=== PATIENT | female | born 1985 | race Hispanic/Latino ===

== ENCOUNTER 2019-09-11 12:13 | Emergency (ER) | payer MEDICAID ==
[2019-09-11 14:35] LABS: APPEARANCE,URINE Cloudy (CLEAR); BILIRUBIN,URINE Negative (NEGATIVE); COLOR,URINE Yellow (YELLOW); GLUCOSE, URINE (UA) Negative (NEGATIVE); KETONES,URINE Negative (NEGATIVE); LEUKOCYTE ESTERASE ,URINE Large (NEGATIVE); NITRATE,URINE Negative (NEGATIVE); OCCULT BLOOD,URINE Large (NEGATIVE); PROTEIN,URINE Negative (NEGATIVE)
[2019-09-11 14:46] LABS: BASOPHILS % (AUTO) 0.3 % (0.0-5.0); EOSINOPHILS % (AUTO) 2.9 % (0.0-8.0); HEMATOCRIT 37.5 % (36-48); LYMPHOCYTES % (AUTO) 21.8 % (21.0-51.0); MEAN CORPUSCULAR HEMOGLOBIN 29.1 pg (27.0-33.0); MEAN CORPUSCULAR HGB CONC 33.3 g/dL (32.0-36.0); MEAN CORPUSCULAR VOLUME 87.2 fL (79-99); MONOCYTES % (AUTO) 5.6 % (3.0-13.0); NEUTROPHILS % (AUTO) 69.2 % (40.0-77.0); PLATELET COUNT (AUTO) 189 K/uL (130-400); RED CELL DISTRIBUTION WIDTH 13.6 % (11.0-15.5); WHITE BLOOD COUNT (AUTO) 6.2 K/uL (4.8-10.8)
[2019-09-11 14:52] LABS: SQUAMOUS EPITHELIAL CELL,UR Moderate /HPF (0-2)
[2019-09-11 14:53] LABS: BACTERIA,URINE Moderate /HPF (None Seen)
[2019-09-11 15:03] LABS: CREATININE 0.5 mg/dL (0.5-1.5); POTASSIUM 4.2 mmol/L (3.5-5.1)
[2019-09-11 15:29] LABS: ALBUMIN 3.5 g/dL (3.5-5.0); BILIRUBIN,TOTAL 0.4 mg/dL (0.2-1.0); TOTAL PROTEIN, SERUM 7.4 g/dL (6.0-8.3)
[2019-09-11] MEDS ORDERED: CEFTRIAXONE SODIUM 1 GM ONE (17:11)
== END 2019-09-11 19:39 | disposition home or self-care (01) ==
LOC: EDH 12:13
DX: O20.0 Threatened abortion (principal); O23.41 Unspecified infection of urinary tract in pregnancy, first trimester; O99.511 Diseases of the respiratory system complicating pregnancy, first trimester; J45.909 Unspecified asthma, uncomplicated; Z79.899 Other long term (current) drug therapy; Z3A.12 12 weeks gestation of pregnancy
CPT/HCPCS: 36415; 76801; 80053; 81001; 83033; 84702; 85025; 86900; 86901; 87088; 96372; 96374; 99284; J0696; J2791

== ENCOUNTER 2020-03-14 00:39 | Inpatient (IN) | payer MEDICAID ==
[~2020-03-14] VITALS: Ht 170.2 cm; Wt 128.8 kg
[2020-03-14] MEDS ORDERED: FERR-82 PO (01:03)
[2020-03-14 01:27] LABS: BILIRUBIN,URINE Negative (NEGATIVE); COLOR,URINE Yellow (YELLOW); GLUCOSE, URINE (UA) Negative (NEGATIVE); KETONES,URINE 15 mg/dL (NEGATIVE); LEUKOCYTE ESTERASE ,URINE Large (NEGATIVE); NITRATE,URINE Negative (NEGATIVE); OCCULT BLOOD,URINE Large (NEGATIVE); PROTEIN,URINE Trace mg/dL (NEGATIVE)
[2020-03-14 01:29] LABS: APPEARANCE,URINE CLOUDY (CLEAR)
[2020-03-14 01:34] LABS: AMPHET/METH SCREEN,URINE NEGATIVE (NEGATIVE); BARBITURATE SCREEN, URINE NEGATIVE (NEGATIVE); BENZODIAZEPINES SCREEN,URINE NEGATIVE (NEGATIVE); CANNABINOID SCREEN,URINE NEGATIVE (NEGATIVE); COCAINE SCREEN,URINE NEGATIVE (NEGATIVE); OPIATE SCREEN,URINE NEGATIVE (NEGATIVE); PHENCYCLIDINE SCREEN,URINE NEGATIVE (NEGATIVE)
[2020-03-14 01:47] LABS: BACTERIA,URINE Few /HPF (None Seen); WBC,URINE 26-50 /HPF (0-1)
[2020-03-14] MEDS ORDERED: PROMETHAZINE HCL 25 MG/ML 1ML AMPULE IM PRN (02:15)
[2020-03-14] MEDS ORDERED: NALOXONE HCL 0.4 MG/1 ML ML IV PRN (02:15)
[2020-03-14] MEDS ORDERED: AMPICILLIN 2GM+NS 100ML 100 ML IV SCH (02:15)
[2020-03-14] MEDS ORDERED: LACTATED RINGERS 500 ML 500 ML IV PRN (02:15)
[2020-03-14] MEDS ORDERED: MEPERIDINE-PF 50 MG/ML SYG IVP PRN (02:15)
[2020-03-14] MEDS ORDERED: ROPIVACAINE 0.2% 100ML VIAL 100 ML EP SCH (02:15)
[2020-03-14] MEDS ORDERED: EPHEDRINE SULFATE 50 MG/ML AMPULE IVP PRN (02:15)
[2020-03-14] MEDS ORDERED: AMPICILLIN 2GM+NS 100ML 100 ML IV ONE (02:29)
[2020-03-14] MEDS: LACTATED RINGERS 1000ML 1,000 ML IV SCH ×2 (02:37→08:31)
[2020-03-14 02:42] LABS: HEMATOCRIT 33.3 % (36-48); MEAN CORPUSCULAR HEMOGLOBIN 28.1 pg (27.0-33.0); MEAN CORPUSCULAR VOLUME 85.2 fL (79-99); RED BLOOD CELL COUNT(AUTO) 3.91 MIL/uL (4.00-5.50); RED CELL DISTRIBUTION WIDTH 15.3 % (11.0-15.5); WHITE BLOOD COUNT (AUTO) 7.8 K/uL (4.8-10.8)
[2020-03-14 03:22] VITALS: BP 113/60
[2020-03-14] MEDS: AMPICILLIN 1GM+NS 50ML 50 ML IV SCH ×3 (06:30→14:18)
[2020-03-14] MEDS ORDERED: CITRIC ACID/SODIUM CITRATE 30 ML UDCUP PO SCH (08:00)
[2020-03-14] MEDS: LACTATED RINGERS 1000ML 1,000 ML IV PRN ×2 (10:28→14:45)
[2020-03-14] MEDS ORDERED: FENTANYL CITRATE PF 50 MCG/1 ML 2ML VIAL ONE (12:42)
[2020-03-14 12:43] LABS: RAPID PLASMA REAGIN NONREACTIVE (NONREACTIVE)
[2020-03-14] MEDS ORDERED: METHYLERGONOVINE MALEATE 0.2 MG/1 ML ML ONE (14:00)
[2020-03-14] MEDS ORDERED: LIDOCAINE HCL 1% 20 ML VIAL ONE (14:00)
[2020-03-14] MEDS ORDERED: OXYTOCIN-LR 20 UNITS/1000 ML 1,000 ML IV SCH ×2 (14:00)
[2020-03-14] MEDS ORDERED: OXYTOCIN-LR 20 UNITS/1000 ML 1,000 ML IV ONE (14:00)
[2020-03-14] MEDS ORDERED: WITCH HAZEL 1 PAD TP PRN (16:45)
[2020-03-14] MEDS ORDERED: LANOLIN 30GM OINTMENT TP PRN (16:45)
[2020-03-14] MEDS ORDERED: ACETAMINOPHEN 325 MG TAB PO PRN (16:45)
[2020-03-14] MEDS ORDERED: MEASLES/MUMPS/RUBELLA VACCINE, LIVE 0.5 ML/VIAL SQ PRN (16:45)
[2020-03-14] MEDS ORDERED: ACETAMINOPHEN-CODEINE 300/30MG TAB PO PRN (16:45)
[2020-03-14] MEDS ORDERED: DIPH,PERTUSS(ACELL),TET VAC/PF 0.5 ML VIAL IM PRN (16:45)
[2020-03-14] MEDS ORDERED: BENZOCAINE/LANOLIN/ALOE VERA 60 ML AEROSOL TP PRN (16:45)
[2020-03-14 17:46] VITALS: BP 104/54
[2020-03-14] MEDS: IBUPROFEN 600 MG TABLET PO PRN (18:52)
[2020-03-14] MEDS ORDERED: FERS325 PO (19:00)
[2020-03-14] MEDS ORDERED: PNV#1COM14 PO (19:00)
[2020-03-14 19:03] VITALS: BP 110/58
[2020-03-14] MEDS: DOCUSATE SODIUM 100 MG CAP PO SCH (20:52)
[2020-03-14 23:42] VITALS: BP 116/72
[2020-03-15 03:47] VITALS: BP 106/65
[2020-03-15 06:12] LABS: HEPATITIS Bs ANTIGEN SCREEN P Negative (Negative)
[2020-03-15 07:38] VITALS: BP 99/62
[2020-03-15] MEDS: DOCUSATE SODIUM 100 MG CAP PO SCH (08:31)
[2020-03-15] MEDS: IBUPROFEN 600 MG TABLET PO PRN (08:33)
[2020-03-15 16:30] VITALS: BP 96/69
[2020-03-15 19:50] VITALS: BP 118/83
== END 2020-03-15 20:00 | disposition home or self-care (01) | DRG 560 ==
LOC: EDH 00:39 → OBSVTOIN 00:40 → LDH 00:40 → WSH 17:40
PROVIDERS: ADMIT Obstetrics & Gynecology; ATTEND Obstetrics & Gynecology
PROC: 10E0XZZ Delivery of Products of Conception, External Approach (ICD-10-PCS; principal; 2020-03-14)
PROC: 10907ZC Drainage of Amniotic Fluid, Therapeutic from Products of Conception, Via Natural or Artificial Opening (ICD-10-PCS; 2020-03-14)
PROC: 3E0R3BZ Introduction of Anesthetic Agent into Spinal Canal, Percutaneous Approach (ICD-10-PCS; 2020-03-14)
PROC: 00HU33Z Insertion of Infusion Device into Spinal Canal, Percutaneous Approach (ICD-10-PCS; 2020-03-14)
PROC: 3E0234Z Introduction of Serum, Toxoid and Vaccine into Muscle, Percutaneous Approach (ICD-10-PCS; 2020-03-14)
PROC: 3E0134Z Introduction of Serum, Toxoid and Vaccine into Subcutaneous Tissue, Percutaneous Approach (ICD-10-PCS; 2020-03-14)
PROC: 3E0234Z Introduction of Serum, Toxoid and Vaccine into Muscle, Percutaneous Approach (ICD-10-PCS; 2020-03-14)
DX: O36.8190 Decreased fetal movements, unspecified trimester, not applicable or unspecified (principal); O69.1XX0 Labor and delivery complicated by cord around neck, with compression, not applicable or unspecified; O26.893 Other specified pregnancy related conditions, third trimester; O99.214 Obesity complicating childbirth; E66.9 Obesity, unspecified; O99.52 Diseases of the respiratory system complicating childbirth; J45.909 Unspecified asthma, uncomplicated; Z3A.38 38 weeks gestation of pregnancy; Z37.0 Single live birth; Z23 Encounter for immunization; Z67.11 Type A blood, Rh negative
CPT/HCPCS: 36415; 80305; 81001; 83033; 85027; 86592; 86701; 86850; 86900; 86901; 87088; 87340; 87390; 90707; 90715; A4314; G0378; J0290; J2175; J2210; J2550; J2590; J2791; J2795; J3010; J7120